=== PATIENT | female | born 1975 | race Caucasian/White ===

== ENCOUNTER 2016-05-23 02:55 | Inpatient (IN) | payer OTHER ==
[~2016-05-23] VITALS: Ht 170.2 cm; Wt 86.5 kg
[~2016-05-23 02:55] MED LIST: ADVIL,NUPRIN,M200 MG PO; CARISOPRODOL350 MG PO; DIAZEPAM10 MG PO; DUONEB 2.5-0.5 M3 ML IH; EDLUAR10 MG SL; EXALGO16 MG PO; FENTANYL1 EAC4 TD; FENTANYL1 EAC5 TD; FLOVENT 22120 INHALA IH; FUROSEMIDE20 MG PO; K-DUR20 MEQ PO; LEVOFLOXACIN500 MG PO; METHADONE10 MG PO; MORPHINE SULFAT30 M1 PO; NAFCIL 2 G2 GM/100 M IV; NYQUIL D COLD295 ML; OPANA ER15 MG PO; OXYMORPHONE HCL10 MG PO; PAXIL20 MG PO; PHENERGAN-CODE120 ML PO; PREDNISONE20 MG PO; PROAIR HFA8.5 GM IH; QUETIAPINE FUMA50 MG PO; TRAZODONE HCL50 MG PO; TYLENOL EXTRA500 MG PO; TYLENOL PM EX-1 EACH PO; VENTOLIN HFA18 GM IH; XANAX1 MG PO; ZOLPIDEM TARTRA10 MG PO
[2016-05-23 03:59] LABS: CHLORIDE 96 mEq/L (99-109); POTASSIUM 2.8 mEq/L (3.7-5.4); SODIUM 133 mEq/L (136-147)
[2016-05-23 04:00] LABS: GLUCOSE 138 mg/dL (70-99)
[2016-05-23 04:02] LABS: ANION GAP 13 MEQ/L (2-14)
[2016-05-23 04:04] LABS: GFR ESTIMATE (CALCULATED) 40 mL/min/; MCH 25.1 PG (29.0-34.0); MCHC 33.5 G/DL (30.0-36.0); MCV 74.9 FL (83-99); RBC DIS.WIDTH-CV 15.2 % (11.8-14.6); RBC DIS.WIDTH-SD 41.2 % (39-53); RED BLOOD COUNT 4.94 M/uL (3.80-5.20); WHITE BLOOD COUNT 14.7 K/uL (4.1-10.2)
[2016-05-23 04:05] LABS: UREA NITROGEN (BUN) 35 mg/dL (9-23)
[2016-05-23 04:07] LABS: CREATINE KINASE 19 IU/L (1-294); TOTAL CK 19 IU/L (1-294)
[2016-05-23 04:08] LABS: INTERNAL CONTROL VALID? YES; MONOSPOT (MONONUCLEOSIS SEROL) NEGATIVE
[2016-05-23 04:09] LABS: TROP-I INTERPRETATION NEGATIVE; TROPONIN-I 0.01 ng/mL (0.0-0.30)
[2016-05-23 04:11] LABS: INFLUENZA A VIRAL ANTIGEN NEGATIVE; INFLUENZA B VIRAL ANTIGEN NEGATIVE
[2016-05-23 04:13] LABS: CK-MB 0.6 ng/mL (0.0-4.9)
[2016-05-23 05:07] LABS: HEMATOLOGY COMMENT 1 REV; PLATELET COUNT 37 K/uL (156-360)
[2016-05-23 08:11] LABS: ERTH.SED.RATE 71 MM/HR (0-20)
[2016-05-23 10:07] LABS: QUANTITATIVE HCG < 4.0 MIU/ML
[2016-05-23] MEDS ORDERED: ONDANSETRON ODT4 MG PO (12:43)
[2016-05-23] MEDS ORDERED: OSELTAMIVIR PHO75 MG PO (12:44)
[2016-05-23] MEDS ORDERED: DUONEB 2.5-0.5 M3 ML AEROSOL (12:45)
[2016-05-23 14:46] LABS: TROP-I INTERPRETATION NEGATIVE; TROPONIN-I < 0.01 ng/mL (0.0-0.30)
[2016-05-23 15:30] VITALS: BP 113/62
[2016-05-23 19:02] LABS: TROP-I INTERPRETATION NEGATIVE; TROPONIN-I < 0.01 ng/mL (0.0-0.30)
[2016-05-23 19:27] VITALS: BP 112/59
[2016-05-23 22:23] LABS: D-DIMER LATEX POSITIVE
[2016-05-23 22:32] LABS: SCHISTOCYTES RARE
[2016-05-23 22:35] LABS: FIBRINOGEN 307 MG/DL (160-450)
[2016-05-23 23:57] VITALS: BP 102/54
[2016-05-24] VITALS (9 sets, daily range): BP systolic 103–135; BP diastolic 55–79
[2016-05-24 07:02] LABS: BASOPHIL COUNT 0.1 K/uL (0-0.1); EOSINOPHIL (%) 0.1 % (0-5); HEMATOCRIT 30.7 % (36.0-46.0); IMMATURE GRANULOCYTE (%) 1.1 % (0.0-0.7); IMMATURE GRANULOCYTE COUNT 0.2 K/uL; LYMPHOCYTE COUNT 1.2 K/uL (1.0-2.8); MCH 25.8 PG (29.0-34.0); MCHC 34.5 G/DL (30.0-36.0); MCV 74.7 FL (83-99); MONOCYTE (%) 15.5 % (3-12); MONOCYTE COUNT 2.5 K/uL (0-0.8); NEUTROPHIL (%) 75.5 % (45-76); NEUTROPHIL COUNT 12.3 K/uL (1.8-6.4); RBC DIS.WIDTH-CV 15.3 % (11.8-14.6); RBC DIS.WIDTH-SD 41.5 % (39-53); RED BLOOD COUNT 4.11 M/uL (3.80-5.20); WHITE BLOOD COUNT 16.2 K/uL (4.1-10.2)
[2016-05-24 07:26] LABS: ANION GAP 10 MEQ/L (2-14); CHLORIDE 102 MEQ/L (99-109); GLUCOSE 116 mg/dL (70-99); POTASSIUM 2.8 MEQ/L (3.7-5.4); SAMPLE HEMOLYSIS CHECK 0; SAMPLE ICTERIC CHECK 0; SAMPLE LIPEMIA CHECK 0; SODIUM 138 MEQ/L (136-147); UREA NITROGEN (BUN) 21 mg/dL (9-23)
[2016-05-24 07:27] LABS: GFR ESTIMATE (CALCULATED) > 59 mL/min/
[2016-05-24 07:58] LABS: MAGNESIUM 1.6 mg/dl (1.3-2.7)
[2016-05-24 08:04] LABS: PLAT.SUFFICIENCY DECREASED; PLATELET COUNT 42 K/uL (156-360); USER ID STC
[2016-05-24 16:28] LABS: ADD MIUA? YES; BILIRUBIN SMALL; BLOOD TRACE; COLOR DK YELLOW ((YELLOW)); GLUCOSE (STRIP) NEGATIVE; KETONES NEGATIVE; LEUKOCYTES NEGATIVE; NITRITE NEGATIVE; PROTEIN (STRIP) 100; SPECIFIC GRAVITY 1.037 (1.000-1.030)
[2016-05-24 19:10] LABS: BACTERIA RARE; CASTS NONE SEEN /LPF; CRYSTALS NONE SEEN; EPITHELIAL CELLS 3+; MUCUS 1+; RED BLOOD CELLS 0-5 /HPF (0-5); UCUL ADDED? NO
[2016-05-25] VITALS (8 sets, daily range): BP systolic 105–134; BP diastolic 61–69
[2016-05-25 09:31] LABS: INTERNAL CONTROL VALID? YES
[2016-05-25 12:40] LABS: HBSG INDEX 0.22; HPCA INDEX 0.14
[2016-05-25 12:51] LABS: BASOPHIL COUNT 0.1 K/uL (0-0.1); EOSINOPHIL (%) 0.2 % (0-5); HEMATOCRIT 27.8 % (36.0-46.0); IMMATURE GRANULOCYTE (%) 0.5 % (0.0-0.7); IMMATURE GRANULOCYTE COUNT 0.1 K/uL; LYMPHOCYTE COUNT 1.2 K/uL (1.0-2.8); MCH 25.7 PG (29.0-34.0); MCHC 33.8 G/DL (30.0-36.0); MEAN PLAT.VOLUME 11.9 uM^3 (9.5-12.4); MONOCYTE (%) 8.1 % (3-12); MONOCYTE COUNT 0.9 K/uL (0-0.8); NEUTROPHIL (%) 79.5 % (45-76); NEUTROPHIL COUNT 8.7 K/uL (1.8-6.4); PLATELET COUNT 96 K/uL (156-360); RBC DIS.WIDTH-CV 15.5 % (11.8-14.6); RBC DIS.WIDTH-SD 42.9 % (39-53); RED BLOOD COUNT 3.66 M/uL (3.80-5.20); WHITE BLOOD COUNT 10.9 K/uL (4.1-10.2)
[2016-05-25 13:36] LABS: ANION GAP 12 MEQ/L (2-14); CHLORIDE 99 MEQ/L (99-109); GFR ESTIMATE (CALCULATED) > 59 mL/min/; GLUCOSE 126 mg/dL (70-99); POTASSIUM 3.1 MEQ/L (3.7-5.4); SAMPLE HEMOLYSIS CHECK 0; SAMPLE ICTERIC CHECK 0; SAMPLE LIPEMIA CHECK 0; SODIUM 139 MEQ/L (136-147); UREA NITROGEN (BUN) 14 mg/dL (9-23)
[2016-05-26 03:25] VITALS: BP 118/70
[2016-05-26 08:20] VITALS: BP 109/70
[2016-05-26 13:32] LABS: EOSINOPHIL (%) 0.1 % (0-5); HEMATOCRIT 31.3 % (36.0-46.0); IMMATURE GRANULOCYTE COUNT 0.1 K/uL; LYMPHOCYTE COUNT 1.4 K/uL (1.0-2.8); MCH 25.5 PG (29.0-34.0); MCHC 33.2 G/DL (30.0-36.0); MCV 76.7 FL (83-99); MONOCYTE (%) 2.8 % (3-12); MONOCYTE COUNT 0.4 K/uL (0-0.8); NEUTROPHIL (%) 85.5 % (45-76); NEUTROPHIL COUNT 11.8 K/uL (1.8-6.4); RBC DIS.WIDTH-CV 15.8 % (11.8-14.6); RBC DIS.WIDTH-SD 44.2 % (39-53); RED BLOOD COUNT 4.08 M/uL (3.80-5.20); WHITE BLOOD COUNT 13.8 K/uL (4.1-10.2)
[2016-05-26 13:45] LABS: MEAN PLAT.VOLUME 12.4 uM^3 (9.5-12.4); PLAT.SUFFICIENCY DECREASED; PLATELET COUNT 120 K/uL (156-360); USER ID SDF
[2016-05-26 16:30] VITALS: BP 110/68
[2016-05-26 19:38] VITALS: BP 119/73
[2016-05-26 23:52] VITALS: BP 103/56
[2016-05-27 04:09] VITALS: BP 122/72
[2016-05-27 07:00] VITALS: BP 112/64
[2016-05-27 11:51] VITALS: BP 119/69
[2016-05-27 15:35] VITALS: BP 106/72
[2016-05-27 15:39] LABS: EOSINOPHIL (%) 0 % (0-5); HEMATOCRIT 29.5 % (36.0-46.0); HEMATOLOGY COMMENT 1 SMEAR COMPATIBLE; IMMATURE GRANULOCYTE (%) 2.2 % (0.0-0.7); IMMATURE GRANULOCYTE COUNT 0.4 K/uL; LYMPHOCYTE COUNT 1.4 K/uL (1.0-2.8); MCH 24.9 PG (29.0-34.0); MCHC 32.9 G/DL (30.0-36.0); MCV 75.8 FL (83-99); MEAN PLAT.VOLUME 12.3 uM^3 (9.5-12.4); MONOCYTE (%) 3.6 % (3-12); MONOCYTE COUNT 0.7 K/uL (0-0.8); NEUTROPHIL (%) 86.9 % (45-76); NEUTROPHIL COUNT 16.4 K/uL (1.8-6.4); PLAT.SUFFICIENCY ADEQUATE; RBC DIS.WIDTH-CV 15.5 % (11.8-14.6); RBC DIS.WIDTH-SD 43.1 % (39-53); RED BLOOD COUNT 3.89 M/uL (3.80-5.20); USER ID NPD
[2016-05-27 15:44] LABS: PLATELET COUNT 191 K/uL (156-360); WHITE BLOOD COUNT 18.9 K/uL (4.1-10.2)
[2016-05-27 20:16] VITALS: BP 123/75
[2016-05-28 00:18] VITALS: BP 123/67
[2016-05-28 05:00] VITALS: BP 114/59
[2016-05-28 08:07] VITALS: BP 127/67
[2016-05-28 09:24] LABS: ANION GAP 9 MEQ/L (2-14); CHLORIDE 103 MEQ/L (99-109); GFR ESTIMATE (CALCULATED) > 59 mL/min/; GLUCOSE 132 mg/dL (70-99); SODIUM 140 MEQ/L (136-147); UREA NITROGEN (BUN) 18 mg/dL (9-23)
[2016-05-28 09:27] LABS: POTASSIUM 4.2 MEQ/L (3.7-5.4)
[2016-05-28 12:36] VITALS: BP 109/66
[2016-05-28 16:17] LABS: EOSINOPHIL (%) 0.1 % (0-5); IMMATURE GRANULOCYTE (%) 1.9 % (0.0-0.7); IMMATURE GRANULOCYTE COUNT 0.3 K/uL; LYMPHOCYTE COUNT 1.7 K/uL (1.0-2.8); MCHC 33.5 G/DL (30.0-36.0); MCV 77.5 FL (83-99); MONOCYTE (%) 3.7 % (3-12); MONOCYTE COUNT 0.7 K/uL (0-0.8); NEUTROPHIL (%) 84.6 % (45-76); NEUTROPHIL COUNT 14.9 K/uL (1.8-6.4); RBC DIS.WIDTH-CV 15.7 % (11.8-14.6); WHITE BLOOD COUNT 17.6 K/uL (4.1-10.2)
[2016-05-28 16:31] LABS: MEAN PLAT.VOLUME 12.2 uM^3 (9.5-12.4); PLATELET COUNT 267 K/uL (156-360)
[2016-05-28 20:00] VITALS: BP 106/67
[2016-05-29 00:15] VITALS: BP 119/66
[2016-05-29 04:56] VITALS: BP 108/65
[2016-05-29 08:09] VITALS: BP 124/71
[2016-05-29 12:57] LABS: EOSINOPHIL (%) 0.1 % (0-5); HEMATOCRIT 29.7 % (36.0-46.0); IMMATURE GRANULOCYTE (%) 1.4 % (0.0-0.7); IMMATURE GRANULOCYTE COUNT 0.3 K/uL; LYMPHOCYTE COUNT 1.2 K/uL (1.0-2.8); MCH 25.7 PG (29.0-34.0); MCHC 32.7 G/DL (30.0-36.0); MCV 78.8 FL (83-99); MEAN PLAT.VOLUME 11.3 uM^3 (9.5-12.4); MONOCYTE (%) 3.1 % (3-12); MONOCYTE COUNT 0.6 K/uL (0-0.8); NEUTROPHIL (%) 89.4 % (45-76); NEUTROPHIL COUNT 17.5 K/uL (1.8-6.4); NRBC (%) 0.1 /100 WBC (0-0); PLATELET COUNT 268 K/uL (156-360); RBC DIS.WIDTH-SD 44.8 % (39-53); RED BLOOD COUNT 3.77 M/uL (3.80-5.20); WHITE BLOOD COUNT 19.5 K/uL (4.1-10.2)
[2016-05-29 14:30] VITALS: BP 124/65
[2016-05-29 19:22] VITALS: BP 114/64
[2016-05-30] VITALS (7 sets, daily range): BP systolic 104–119; BP diastolic 56–70
[2016-05-30 11:38] LABS: HEMATOCRIT 30.3 % (36.0-46.0); MCH 25.2 PG (29.0-34.0); MCV 78.7 FL (83-99); MEAN PLAT.VOLUME 10.6 uM^3 (9.5-12.4); PLATELET COUNT 279 K/uL (156-360); RBC DIS.WIDTH-CV 16.7 % (11.8-14.6); RBC DIS.WIDTH-SD 44.8 % (39-53); RED BLOOD COUNT 3.85 M/uL (3.80-5.20); WHITE BLOOD COUNT 22.4 K/uL (4.1-10.2)
[2016-05-30 11:40] LABS: EOSINOPHIL (%) 0.2 % (0-5); IMMATURE GRANULOCYTE (%) 0.8 % (0.0-0.7); IMMATURE GRANULOCYTE COUNT 0.2 K/uL; MONOCYTE (%) 4.1 % (3-12); MONOCYTE COUNT 0.9 K/uL (0-0.8); NEUTROPHIL (%) 90.6 % (45-76); NEUTROPHIL COUNT 20.3 K/uL (1.8-6.4)
[2016-05-30 12:22] LABS: HEMATOLOGY COMMENT 1 SMEAR COMPATIBLE; USER ID SDF
[2016-05-31 04:15] VITALS: BP 108/60
[2016-05-31 07:50] VITALS: BP 115/60
[2016-05-31 10:47] LABS: HEMATOCRIT 27.9 % (36.0-46.0); MCH 25.9 PG (29.0-34.0); MCHC 32.3 G/DL (30.0-36.0); MCV 80.2 FL (83-99); MEAN PLAT.VOLUME 10.3 uM^3 (9.5-12.4); PLATELET COUNT 279 K/uL (156-360); RBC DIS.WIDTH-SD 47.2 % (39-53); RED BLOOD COUNT 3.48 M/uL (3.80-5.20); WHITE BLOOD COUNT 19.4 K/uL (4.1-10.2)
[2016-05-31 10:50] LABS: EOSINOPHIL (%) 0 % (0-5); IMMATURE GRANULOCYTE (%) 0.6 % (0.0-0.7); IMMATURE GRANULOCYTE COUNT 0.1 K/uL; LYMPHOCYTE COUNT 0.7 K/uL (1.0-2.8); MONOCYTE (%) 4.2 % (3-12); MONOCYTE COUNT 0.8 K/uL (0-0.8); NEUTROPHIL (%) 91.7 % (45-76); NEUTROPHIL COUNT 17.7 K/uL (1.8-6.4)
[2016-05-31 11:29] LABS: HEMATOLOGY COMMENT 1 SMEAR COMPATIBLE; USER ID SDF
[2016-05-31 11:31] VITALS: BP 120/56
[2016-05-31 16:39] VITALS: BP 111/59
[2016-06-01 01:31] VITALS: BP 117/58
[2016-06-01 04:14] VITALS: BP 117/54
[2016-06-01 07:51] VITALS: BP 123/70
[2016-06-01 10:43] LABS: EOSINOPHIL (%) 0.5 % (0-5); EOSINOPHIL COUNT 0.1 K/uL (0-0.3); HEMATOCRIT 26.3 % (36.0-46.0); IMMATURE GRANULOCYTE (%) 0.4 % (0.0-0.7); IMMATURE GRANULOCYTE COUNT 0.1 K/uL; LYMPHOCYTE COUNT 1.1 K/uL (1.0-2.8); MCH 26.2 PG (29.0-34.0); MCHC 31.9 G/DL (30.0-36.0); MCV 81.9 FL (83-99); MEAN PLAT.VOLUME 10.7 uM^3 (9.5-12.4); MONOCYTE (%) 6.4 % (3-12); MONOCYTE COUNT 0.8 K/uL (0-0.8); NEUTROPHIL (%) 84.2 % (45-76); PLATELET COUNT 276 K/uL (156-360); RBC DIS.WIDTH-CV 16.9 % (11.8-14.6); RBC DIS.WIDTH-SD 49.6 % (39-53); RED BLOOD COUNT 3.21 M/uL (3.80-5.20)
[2016-06-01 10:52] LABS: ANION GAP 10 MEQ/L (2-14); CHLORIDE 96 MEQ/L (99-109); GFR ESTIMATE (CALCULATED) > 59 mL/min/; GLUCOSE 116 mg/dL (70-99); POTASSIUM 4.3 MEQ/L (3.7-5.4); SAMPLE HEMOLYSIS CHECK 0; SAMPLE ICTERIC CHECK 0; SAMPLE LIPEMIA CHECK 0; UREA NITROGEN (BUN) 16 mg/dL (9-23)
[2016-06-01 10:54] LABS: SODIUM 132 MEQ/L (136-147)
[2016-06-01 11:55] VITALS: BP 128/44
[2016-06-01 16:31] VITALS: BP 102/55
[2016-06-01 21:08] VITALS: BP 140/87
[2016-06-02 04:03] VITALS: BP 109/57
[2016-06-02 08:33] VITALS: BP 100/57
[2016-06-02 12:23] LABS: GFR ESTIMATE (CALCULATED) > 59 mL/min/
[2016-06-02 12:33] VITALS: BP 126/64
[2016-06-02 18:05] VITALS: BP 104/55
[2016-06-02 20:51] VITALS: BP 101/60
[2016-06-02 23:09] VITALS: BP 96/55
[2016-06-03 03:39] VITALS: BP 100/59
[2016-06-03 08:20] VITALS: BP 106/59
[2016-06-03 09:37] LABS: ANION GAP 9 MEQ/L (2-14); CHLORIDE 98 MEQ/L (99-109); POTASSIUM 4.3 MEQ/L (3.7-5.4); SAMPLE HEMOLYSIS CHECK 0; SAMPLE ICTERIC CHECK 0; SAMPLE LIPEMIA CHECK 0; SODIUM 132 MEQ/L (136-147)
[2016-06-03 09:43] LABS: GFR ESTIMATE (CALCULATED) > 59 mL/min/; GLUCOSE 87 mg/dL (70-99); UREA NITROGEN (BUN) 14 mg/dL (9-23)
[2016-06-03 11:20] VITALS: BP 101/59
[2016-06-03 11:50] LABS: MCH 26.2 PG (29.0-34.0); MCHC 32.5 G/DL (30.0-36.0); MCV 80.5 FL (83-99); MEAN PLAT.VOLUME 10.7 uM^3 (9.5-12.4); PLATELET COUNT 333 K/uL (156-360); RBC DIS.WIDTH-CV 16.7 % (11.8-14.6); RED BLOOD COUNT 2.98 M/uL (3.80-5.20); WHITE BLOOD COUNT 12.7 K/uL (4.1-10.2)
[2016-06-03 12:21] LABS: EOSINOPHIL (%) 0 % (0-5); IMMATURE GRANULOCYTE (%) 0.3 % (0.0-0.7); LYMPHOCYTE COUNT 0.9 K/uL (1.0-2.8); MONOCYTE COUNT 0.8 K/uL (0-0.8); NEUTROPHIL (%) 86.7 % (45-76); NEUTROPHIL COUNT 11.1 K/uL (1.8-6.4)
[2016-06-03 15:55] VITALS: BP 110/64
[2016-06-03 20:12] VITALS: BP 107/61
[2016-06-04] VITALS (7 sets, daily range): BP systolic 95–127; BP diastolic 58–87
[2016-06-04 06:24] LABS: HEMATOCRIT 24.9 % (36.0-46.0); MCHC 32.5 G/DL (30.0-36.0); MCV 80.1 FL (83-99); MEAN PLAT.VOLUME 10.8 uM^3 (9.5-12.4); PLATELET COUNT 412 K/uL (156-360); RBC DIS.WIDTH-CV 16.5 % (11.8-14.6); RBC DIS.WIDTH-SD 47.4 % (39-53); RED BLOOD COUNT 3.11 M/uL (3.80-5.20); WHITE BLOOD COUNT 13.4 K/uL (4.1-10.2)
[2016-06-04 06:55] LABS: ANION GAP 9 MEQ/L (2-14); CHLORIDE 98 MEQ/L (99-109); GFR ESTIMATE (CALCULATED) > 59 mL/min/; POTASSIUM 4.1 MEQ/L (3.7-5.4); SAMPLE HEMOLYSIS CHECK 0; SAMPLE ICTERIC CHECK 0; SAMPLE LIPEMIA CHECK 0; SODIUM 132 MEQ/L (136-147); UREA NITROGEN (BUN) 9 mg/dL (9-23)
[2016-06-04 06:56] LABS: GLUCOSE 109 mg/dL (70-99)
[2016-06-05 03:35] VITALS: BP 87/54
[2016-06-05 08:46] VITALS: BP 100/64
[2016-06-05 09:17] LABS: HEMATOCRIT 25.6 % (36.0-46.0); MCHC 31.6 G/DL (30.0-36.0); MCV 82.1 FL (83-99); MEAN PLAT.VOLUME 10.8 uM^3 (9.5-12.4); PLATELET COUNT 354 K/uL (156-360); RBC DIS.WIDTH-CV 16.9 % (11.8-14.6); RBC DIS.WIDTH-SD 49.7 % (39-53); RED BLOOD COUNT 3.12 M/uL (3.80-5.20)
[2016-06-05 09:24] LABS: WHITE BLOOD COUNT 9.1 K/uL (4.1-10.2)
[2016-06-05 09:39] LABS: ANION GAP 9 MEQ/L (2-14); C-REACTIVE PROTEIN 206.1 MG/L (0-10); CHLORIDE 96 MEQ/L (99-109); GFR ESTIMATE (CALCULATED) > 59 mL/min/; GLUCOSE 109 mg/dL (70-99); POTASSIUM 3.8 MEQ/L (3.7-5.4); SAMPLE HEMOLYSIS CHECK 0; SAMPLE ICTERIC CHECK 0; SAMPLE LIPEMIA CHECK 0; SODIUM 134 MEQ/L (136-147); UREA NITROGEN (BUN) 18 mg/dL (9-23)
[2016-06-05 13:35] VITALS: BP 116/65
[2016-06-05 16:49] VITALS: BP 100/53
[2016-06-05 23:33] VITALS: BP 139/91
[2016-06-06 08:25] VITALS: BP 103/66
[2016-06-06] MEDS ORDERED: ADVAIR HFA120 INHALA IH (12:13)
[2016-06-06] MEDS ORDERED: SPIRIVA RESPIMAT4 GM IH (12:13)
[2016-06-06] MEDS ORDERED: PROAIR HFA8.5 GM IH (12:13)
[2016-06-06] MEDS ORDERED: MICONAZOLE NITR30 GM TP (12:15)
[2016-06-06] MEDS ORDERED: CIPRO500 MG PO (12:15)
[2016-06-06] MEDS ORDERED: RIFAMPIN300 MG PO (12:15)
== END 2016-06-06 12:45 | disposition home or self-care (01) | DRG 871 ==
LOC: EME → EDBD 02:55 → 3EAST 06:07 → EDOF 06:07 → 3EAST 15:44 → 5EAST 06-02 20:45
PROVIDERS: Emergency Medicine; Hospitalist; Internal Medicine; Internal Medicine Hematology & Oncology; Internal Medicine Infectious Disease; Physician Assistant
PROC: 30233R1 Transfusion of Nonautologous Platelets into Peripheral Vein, Percutaneous Approach (ICD-10-PCS; principal; 2016-05-24)
DX: A41.01 Sepsis due to Methicillin susceptible Staphylococcus aureus (principal); J15.211 Pneumonia due to Methicillin susceptible Staphylococcus aureus; I26.90 Septic pulmonary embolism without acute cor pulmonale; I33.0 Acute and subacute infective endocarditis; B95.61 Methicillin susceptible Staphylococcus aureus infection as the cause of diseases classified elsewhere; I07.1 Rheumatic tricuspid insufficiency; F11.20 Opioid dependence, uncomplicated; F31.32 Bipolar disorder, current episode depressed, moderate; M02.311 Reiter's disease, right shoulder; M02.312 Reiter's disease, left shoulder; M02.361 Reiter's disease, right knee; M02.362 Reiter's disease, left knee; M02.371 Reiter's disease, right ankle and foot; M02.372 Reiter's disease, left ankle and foot; D69.6 Thrombocytopenia, unspecified; D64.89 Other specified anemias; F41.1 Generalized anxiety disorder; F60.3 Borderline personality disorder; E87.6 Hypokalemia; J90 Pleural effusion, not elsewhere classified; J45.30 Mild persistent asthma, uncomplicated; E86.0 Dehydration; I27.2 Other secondary pulmonary hypertension; F17.210 Nicotine dependence, cigarettes, uncomplicated; G47.00 Insomnia, unspecified; G89.29 Other chronic pain; B37.9 Candidiasis, unspecified; Z91.5 Personal history of self-harm
CPT/HCPCS: 71010; 71020; 71275; 76937; 80048; 80170; 81003; 82550; 82553; 82565; 83605; 83615; 83735; 83880; 84484; 84702; 85025; 85027; 85378; 85384; 85651; 86140; 86308; 86803; 86850; 86860; 86870; 86880; 86900; 86901; 86905; 86920; 87040; 87070; 87077; 87081; 87106; 87147; 87186; 87205; 87340; 87449; 87502; 87801; 93005; 93306; 93970; 94640 76; 94760; 94799; 99202; 99281; 99285; C1894; J0456; J0690; J0692; J1170; J1200; J1580; J1650; J1885; J2270; J2405; J2543; J2920; J2930; J3370; J3480; J7030; J7050; J7120; J7512; P9035